=== PATIENT | female | born 1990 | race Two or more races ===

== ENCOUNTER 2018-07-27 05:13 | Inpatient (IN) | payer OTHER ==
[~2018-07-27] VITALS: Ht 160 cm; Wt 58.1 kg
[~2018-07-27 05:13] MED LIST: OXYC-302 PO
[2018-07-27] MEDS ORDERED: OXYTOCIN 30U/ 0.9% NaCL 500ML 500 ML IV PRN (05:15)
[2018-07-27] MEDS ORDERED: LACTATED RINGERS 1,000 ML IV SCH ×3 (05:15→12:33)
[2018-07-27] MEDS ORDERED: OXYTOCIN 30U/ 0.9% NaCL 500ML 500 ML IV ONE (05:15)
[2018-07-27] MEDS ORDERED: D5%-LACTATED RINGERS 1,000 ML IV SCH (05:15)
[2018-07-27 05:24] VITALS: BP 105/56
[2018-07-27] MEDS ORDERED: MISOPROSTOL 200 MCG TABLET ONE (05:25)
[2018-07-27] MEDS ORDERED: NEWBORN KIT ONE (05:25)
[2018-07-27] MEDS ORDERED: OXYTOCIN 30U/ 0.9% NaCL 500ML 500 ML ONE (05:25)
[2018-07-27] MEDS ORDERED: LIDOCAINE 1%, 20ML ONE (05:25)
[2018-07-27] MEDS ORDERED: CALCIUM CARBONATE 500 MG TAB.CHEW PO PRN (05:30)
[2018-07-27] MEDS ORDERED: FENTANYL PF 100 MCG/2ML IV PRN (05:30)
[2018-07-27] MEDS ORDERED: FENTANYL PF 100 MCG/2ML IVPush PRN (05:30)
[2018-07-27] MEDS ORDERED: ONDANSETRON 2MG/ML, 2ML IVPush PRN ×2 (05:30→13:00)
[2018-07-27 05:48] LABS: BASOPHILS # (AUTO) 0.04 x10^3/uL (0-0.1); BASOPHILS % (AUTO) 1 % (0-1); EOSINOPHILS # (AUTO) 0.11 x10^3/uL (0-0.4); EOSINOPHILS % (AUTO) 2 % (1-7); LYMPHOCYTES # (AUTO) 1.82 x10^3/uL (1-3.4); LYMPHOCYTES % (AUTO) 24 % (22-44); MD NO; MEAN CORPUSCULAR HEMOGLOBIN 25.2 pg (27.0-34.8); MEAN CORPUSCULAR HGB CONC 32.6 g/dL (32.4-35.8); MEAN CORPUSCULAR VOLUME 77.1 fL (80-100); MEAN PLATELET VOLUME 8.7 fL (7.4-10.4); MONOCYTES # (AUTO) 0.39 x10^3/uL (0.2-0.8); MONOCYTES % (AUTO) 5 % (2-9); NEUTROPHILS # (AUTO) 5.33 x10^3/uL (1.8-6.8); NEUTROPHILS % (AUTO) 69 % (42-75); PLATELET COUNT 263 x10^3/uL (130-400); RED BLOOD COUNT 3.95 x10^6/uL (3.82-5.3); RED CELL DISTRIBUTION WIDTH 16.2 % (9.6-15.2)
[2018-07-27] MEDS ORDERED: FENTANYL/BUPIV./NS/PF 250 ML EPIDCONT SCH ×2 (05:52→12:33)
[2018-07-27] MEDS ORDERED: LACTATED RINGERS 1,000 ML IVBOLUS PRN ×2 (06:00→13:00)
[2018-07-27] MEDS ORDERED: FENTANYL PF 500 MCG, BUPIVACAINE/PF 0.5%, 30ML 62.5 ML in SODIUM CHLORIDE 0.9% 177.5 ML EPIDCONT SCH (06:00)
[2018-07-27] MEDS ORDERED: PREN-3 PO (06:03)
[2018-07-27 08:05] VITALS: BP 101/57
[2018-07-27] MEDS ORDERED: FENTANYL PF 100 MCG/2ML ONE (11:51)
[2018-07-27] MEDS ORDERED: BUPIVACAINE 0.25% ONE (12:21)
[2018-07-27] MEDS ORDERED: LIDOCAINE/MPF 2%-EPI 1:200K, 20 ML ONE (12:26)
[2018-07-27] MEDS ORDERED: LIDOCAINE/PF 1.5%-EPI 1:200K, 30ML ONE (12:26)
[2018-07-27] MEDS ORDERED: EPHEDRINE 50 MG/ML, 1ML IVPush PRN (13:00)
[2018-07-27] MEDS ORDERED: NALOXONE 0.4 MG/ML, 1ML IVPush PRN (13:00)
[2018-07-27] MEDS ORDERED: DIPHENHYDRAMINE 50 MG/ML, 1ML IVPush PRN (13:00)
[2018-07-27] MEDS: OXYTOCIN 30U/ 0.9% NaCL 500ML 500 ML IV SCH ×2 (13:41→23:41)
[2018-07-27] MEDS ORDERED: ACETAMINOPHEN 325 MG TABLET PO PRN (14:00)
[2018-07-27] MEDS ORDERED: MEASLES,MUMPS&RUBELLA VACC/PF 0.5 ML SQ PRN (14:00)
[2018-07-27] MEDS ORDERED: CARBOPROST TROMETHAMINE 250 MCG/ML, 1ML IM PRN (14:00)
[2018-07-27] MEDS ORDERED: MISOPROSTOL 200 MCG TABLET PR PRN (14:00)
[2018-07-27] MEDS ORDERED: DIPH,PERTUSS(ACELL),TET VAC/PF NC IM-VACC PRN (14:00)
[2018-07-27] MEDS ORDERED: METHYLERGONOVINE 0.2 MG/ML IM PRN (14:00)
[2018-07-27 15:30] VITALS: BP 113/68
[2018-07-27] MEDS: IBUPROFEN 600 MG TABLET PO PRN (16:41)
[2018-07-27 20:00] VITALS: BP 102/66
[2018-07-27] MEDS: OXYcodone/APAP 5/325MG TABLET PO PRN (20:20)
[2018-07-28] VITALS: BP 113/70
[2018-07-28 04:00] VITALS: BP 112/72
[2018-07-28] MEDS: OXYcodone/APAP 5/325MG TABLET PO PRN ×3 (04:32→15:13)
[2018-07-28] MEDS: IBUPROFEN 600 MG TABLET PO PRN ×3 (04:32→17:11)
[2018-07-28 05:49] LABS: BASOPHILS # (AUTO) 0.04 x10^3/uL (0-0.1); BASOPHILS % (AUTO) 0 % (0-1); EOSINOPHILS # (AUTO) 0.24 x10^3/uL (0-0.4); EOSINOPHILS % (AUTO) 2 % (1-7); LYMPHOCYTES # (AUTO) 2.13 x10^3/uL (1-3.4); LYMPHOCYTES % (AUTO) 17 % (22-44); MD NO; MEAN CORPUSCULAR HEMOGLOBIN 25.6 pg (27.0-34.8); MEAN CORPUSCULAR HGB CONC 33.1 g/dL (32.4-35.8); MEAN CORPUSCULAR VOLUME 77.5 fL (80-100); MONOCYTES % (AUTO) 5 % (2-9); NEUTROPHILS # (AUTO) 9.44 x10^3/uL (1.8-6.8); NEUTROPHILS % (AUTO) 76 % (42-75); PLATELET COUNT 242 x10^3/uL (130-400); RED BLOOD COUNT 3.91 x10^6/uL (3.82-5.3); RED CELL DISTRIBUTION WIDTH 15.8 % (9.6-15.2)
[2018-07-28 07:10] VITALS: BP 93/56
[2018-07-28] MEDS ORDERED: METHOCARBAMOL 750 MG TABLET PO PRN (11:00)
[2018-07-28] MEDS: PRENATAL VIT/IRON/FA 1 EACH TABLET PO SCH (11:05)
[2018-07-28] MEDS: DOCUSATE 100 MG CAPSULE PO PRN (11:05)
[2018-07-28 12:50] VITALS: BP 104/65
[2018-07-28 20:00] VITALS: BP 101/60
[2018-07-28] MEDS: METHOCARBAMOL 750 MG TABLET PO PRN (20:54)
[2018-07-29] MEDS: IBUPROFEN 600 MG TABLET PO PRN ×2 (01:31→09:14)
[2018-07-29] MEDS: OXYcodone/APAP 5/325MG TABLET PO PRN (01:31)
[2018-07-29] MEDS: METHOCARBAMOL 750 MG TABLET PO PRN (03:32)
[2018-07-29 07:50] VITALS: BP 121/85
[2018-07-29] MEDS: PRENATAL VIT/IRON/FA 1 EACH TABLET PO SCH (09:14)
[2018-07-29] MEDS: DOCUSATE 100 MG CAPSULE PO PRN (09:14)
[2018-07-29] MEDS ORDERED: IBUP-1223 PO (11:40)
[2018-07-29] MEDS ORDERED: OXYC-302 PO (11:41)
[2018-07-29] MEDS ORDERED: METH750T87 PO (11:43)
[2018-08-16] MEDS ORDERED: METHOCARBAMOL 750 MG TABLET PO SCH (21:00)
== END 2018-07-29 12:37 | disposition home or self-care (01) | DRG 807 ==
LOC: LDIP 05:13 → 2NW 15:38
PROVIDERS: ADMIT Obstetrics & Gynecology Maternal & Fetal Medicine; ATTEND Obstetrics & Gynecology Maternal & Fetal Medicine
PROC: 10E0XZZ Delivery of Products of Conception, External Approach (ICD-10-PCS; principal; 2018-07-27)
PROC: 3E0R3BZ Introduction of Anesthetic Agent into Spinal Canal, Percutaneous Approach (ICD-10-PCS; 2018-07-27)
PROC: 00HU33Z Insertion of Infusion Device into Spinal Canal, Percutaneous Approach (ICD-10-PCS; 2018-07-27)
DX: O80 Encounter for full-term uncomplicated delivery (principal); Z37.0 Single live birth; O89.4 Spinal and epidural anesthesia-induced headache during the puerperium; Z3A.38 38 weeks gestation of pregnancy
CPT/HCPCS: 36415; 62273; 85025; 86850; 86900; G0378; J3010; J3490; J2590; J7050; J7120

== ENCOUNTER 2018-07-30 16:15 | Emergency (ER) | payer OTHER ==
[~2018-07-30] VITALS: Ht 160 cm; Wt 54.2 kg
[~2018-07-30 16:15] MED LIST changes: +IBUP-1223 PO; +METH750T87 PO; +PREN-3 PO
--- NOTE | 2018-07-30 18:49 | NUR ---
pt to room from lobby
[2018-07-30] MEDS ORDERED: SODIUM CHLORIDE FLUSH 10ML SYR IVF ONE (19:30)
[2018-07-30] MEDS ORDERED: KETOROLAC 30 MG/1 ML IVPush ONE (19:30)
[2018-07-30] MEDS ORDERED: PROCHLORPERAZINE 5 MG/ML, 2ML IVPush ONE (19:30)
[2018-07-30] MEDS ORDERED: DIPHENHYDRAMINE 50 MG/ML, 1ML IVPush ONE (19:30)
[2018-07-30] MEDS ORDERED: SUMATRIPTAN 6MG/0.5ML SQ ONE ×2 (19:30→19:43)
[2018-07-30] MEDS ORDERED: PROCHLORPERAZINE 5 MG/ML, 2ML ONE (19:42)
[2018-07-30] MEDS ORDERED: KETOROLAC 30 MG/1 ML ONE (19:43)
[2018-07-30] MEDS ORDERED: DIPHENHYDRAMINE 50 MG/ML, 1ML ONE (19:43)
[2018-07-30 20:11] LABS: ALANINE AMINOTRANSFERASE 16 U/L (12-78); ALBUMIN 2.7 g/dL (3.4-5.0); ANION GAP 7 mmol/L (5-15); CALCIUM 8.6 mg/dL (8.5-10.1); CHLORIDE 111 mmol/L (98-107); CREATININE 0.53 mg/dL (0.55-1.02)
[2018-07-30 20:13] LABS: BASOPHILS # (AUTO) 0.01 x10^3/uL (0-0.1); BASOPHILS % (AUTO) 0 % (0-1); EOSINOPHILS # (AUTO) 0.19 x10^3/uL (0-0.4); EOSINOPHILS % (AUTO) 2 % (1-7); LYMPHOCYTES % (AUTO) 12 % (22-44); MD NO; MEAN CORPUSCULAR HEMOGLOBIN 25.3 pg (27.0-34.8); MEAN CORPUSCULAR HGB CONC 32.5 g/dL (32.4-35.8); MEAN CORPUSCULAR VOLUME 77.9 fL (80-100); MEAN PLATELET VOLUME 8.5 fL (7.4-10.4); MONOCYTES # (AUTO) 0.25 x10^3/uL (0.2-0.8); MONOCYTES % (AUTO) 2 % (2-9); NEUTROPHILS # (AUTO) 9.48 x10^3/uL (1.8-6.8); NEUTROPHILS % (AUTO) 84 % (42-75); PLATELET COUNT 298 x10^3/uL (130-400); RED BLOOD COUNT 4.55 x10^6/uL (3.82-5.3); RED CELL DISTRIBUTION WIDTH 15.9 % (9.6-15.2)
[2018-07-30 20:14] LABS: ALKALINE PHOSPHATASE 313 U/L (45-117); BILIRUBIN,TOTAL 0.3 mg/dL (0.2-1.0); TOTAL PROTEIN 7.4 g/dL (6.4-8.2)
--- NOTE | 2018-07-30 21:01 | NUR ---
Pain reassesed, pt reports 5/10 pain, states that is a tolerable level for her. Awaiting CT results, family at bedside.
--- NOTE | 2018-07-30 21:39 | NUR ---
Pt ambulated to restroom without assistance, pt denies return of headache after ambulation, states she feels good to go home, anesthesiologist to see pt first.
[2018-07-30 21:43] VITALS: BP 127/83
--- NOTE | 2018-07-30 21:46 | NUR ---
Anesthesiologist at bedside
== END 2018-07-30 22:14 | disposition home or self-care (01) ==
LOC: ED 21:56
DX: G43.C1 Periodic headache syndromes in child or adult, intractable (principal)
CPT/HCPCS: 36415; 70450; 72125; 80053; 85025; 96372; 96374; 96375; 99284; J0780; J1200; J1885; J3030